=== PATIENT | male | born 1970 | race Caucasian/White ===

== ENCOUNTER 2017-05-17 18:27 | Emergency (ER) | payer OTHER ==
[2017-05-17] MEDS ORDERED: SODIUM CHLORIDE 0.9% 1,000 ML IV STA ×2 (18:59)
[2017-05-17 19:18] LABS: Basophils % (A) 0 %; CH 32.2; CHCM 34.2; Eosinophils # (A) 0.1 k/uL (0-0.7); Eosinophils % (A) 2 %; HCT 42.7 % (39.0-53.0); HDW 2.68; HGB 14.8 gm/dL (13.0-17.5); Luc # (Auto) 0.16; Luc % (Auto) 2; Lymphocytes % (A) 26 %; MCH 32.8 pg (25.0-35.0); MCHC 34.6 g/dL (31.0-37.0); MCV 94.8 fL (80.0-100.0); Mean Platelet Volume 7.6; Monocytes # (A) 0.5 k/uL (0-1.0); Monocytes % (A) 6 %; Neutrophils # (A) 4.8 k/uL (1.3-7.7); Neutrophils % (A) 64 %; RBC 4.51 m/uL (4.30-5.90); RDW 13.1 % (11.5-15.5); WBC 7.6 k/uL (3.8-10.6); WBC (Perox) 7.89
--- NOTE | 2017-05-17 19:22 | XR ---
EXAMINATION TYPE: XR chest 2V DATE OF EXAM: 05/17/2017 COMPARISON: None HISTORY: 47-year-old male with syncope TECHNIQUE: Frontal and lateral views FINDINGS: The heart is mildly enlarged. Mild interstitial prominence. No consolidation or pleural effusion. IMPRESSION: Cardiomegaly and mild interstitial prominence. Correlate to exclude mild CHF.
[2017-05-17 19:24] LABS: INR 2.4 (<1.2); Prothrombin Time 22.7 sec (9.0-12.0)
[2017-05-17 19:25] LABS: ALT 59 U/L (21-72); AST 79 U/L (17-59); Alcohol 12 mg/dL; Alkaline Phosphatase 64 U/L (38-126); Anion Gap 9 mmol/L; Blood Urea Nitrogen 20 mg/dL (9-20); Carbon Dioxide 22 mmol/L (22-30); Chloride 108 mmol/L (98-107); Glucose 120 mg/dL (74-99); Magnesium 1.5 mg/dL (1.6-2.3); Non-African American GFR(MDRD) >60 (>60 ml/min/1.73 sqM); Sodium 139 mmol/L (137-145); Total Bilirubin 0.6 mg/dL (0.2-1.3); Total Protein 5.7 g/dL (6.3-8.2)
[2017-05-17 19:28] LABS: Potassium 4.5 mmol/L (3.5-5.1)
[2017-05-17 19:33] LABS: Creatine Kinase 732 U/L (55-170)
[2017-05-17 19:46] LABS: Troponin I <0.012 ng/mL (0.000-0.034)
[2017-05-17 19:49] LABS: Creatine Kinase MB 5.4 ng/mL (0.0-2.4)
[2017-05-17 20:46] VITALS: PULSE 69
[2017-05-17] MEDS ORDERED: ASPIRIN 325 MG TAB PO STA (20:50)
--- NOTE | 2017-05-17 20:50 | ED ---
General Adult HPI - General Chief complaint: Syncope Stated complaint: near syncope Time Seen by Provider: 05/17/17 18:32 Source: patient, family, EMS, RN notes reviewed Mode of arrival: EMS Limitations: no limitations - History of Present Illness Initial comments: 47-year-old male presents with lightheadedness and difficulty breathing. Patient's has history of A. fib, hypertension, and congestive heart failure. [place], he did admit to having 3 beers and smoking some cigarettes which he normally does not do. Denies nausea vomiting or diarrhea. Patient became lightheaded and almost passed out. Was brought by family members for evaluation in the emergency department. Patient did report eating lunch, overall he did not eat much today. Patient denies chest pain at this time. States he had some mild chest pain with the episode. - Related Data Home Medications Medication Instructions Recorded Confirmed Atorvastatin Calcium [Lipitor] 10 mg PO DAILY 05/17/17 05/17/17 Furosemide [Lasix] 20 mg PO DAILY 05/17/17 05/17/17 Lisinopril 40 mg PO DAILY 05/17/17 05/17/17 Potassium Chloride [K-Tab ER] 20 meq PO DAILY 05/17/17 05/17/17 Verapamil HCl [Verapamil ER] 240 mg PO DAILY 05/17/17 05/17/17 Warfarin [Coumadin] 2.5 mg PO MOTUWETH 05/17/17 05/17/17 Warfarin [Coumadin] 5 mg PO SUFRSA 05/17/17 05/17/17 amLODIPine [Norvasc] 5 mg PO DAILY 05/17/17 05/17/17 Allergies Allergy/AdvReac Type Severity Reaction Status Date / Time No Known Allergies Allergy Verified 05/17/17 18:42 Review of Systems ROS Statement: Those systems with pertinent positive or pertinent negative responses have been documented in the HPI. ROS Other: All systems not noted in ROS Statement are negative. Past Medical History Past Medical History: Atrial Fibrillation, Hyperlipidemia, Hypertension History of Any Multi-Drug Resistant Organisms: None Reported Past Surgical History: Appendectomy Past Psychological History: No Psychological Hx Reported Smoking Status: Light tobacco smoker Past Alcohol Use History: Occasional Past Drug Use History: None Reported General Exam Limitations: no limitations General appearance: alert, in no apparent distress Head exam: Present: atraumatic, normocephalic Eye exam: Present: normal appearance, PERRL ENT exam: Present: normal exam Neck exam: Present: normal inspection, full ROM. Absent: tenderness Respiratory exam: Present: rales. Absent: respiratory distress Cardiovascular Exam: Present: regular rate, normal rhythm GI/Abdominal exam: Present: soft, distended. Absent: tenderness Extremities exam: Present: pedal edema Neurological exam: Present: alert, oriented X3. Absent: motor sensory deficit Psychiatric exam: Present: normal affect, normal mood Skin exam: Present: warm, dry. Absent: cyanosis, diaphoretic Course Vital Signs 05/17/17 18:31 Temperature 97.2 F L Pulse Rate 70 Respiratory 16 Rate Blood Pressure 88/52 O2 Sat by Pulse 93 L Oximetry EKG Findings - EKG Comments: EKG Findings:: EKG shows normal sinus rhythm with a ventricular rate of 72, WA interval appears normal although not quantified. QRS duration 88, QTC 473, no signs of ST segment elevation Medical Decision Making - Medical Decision Making 47-year-old male with history of syncopal episode. Patient does report some chest pain which is resolving shortness of breath. Scalp fine rales on auscultation, and chest x-ray shows pulmonary edema with cardio megaly. There is no medical records in our system here. Patient speaks only some Banglades[place], his family helps translate complete history. 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 EKG nonischemic, chest x-ray shows cardiomegaly with pulmonary edema. Laboratory studies reveal a stable hemoglobin, therapeutic INR, mild hypo ca+. Troponin is negative. Patient's vital signs improved with 1 L of IV hydration. He is given an aspirin in the emergency department. He will be transferred to [facility].. Diagnosis: Syncope, chest pain-Resolved, congestive heart failure. - Lab Data Result diagrams: 05/17/17 18:30 05/17/17 18:30 Lab Results 05/17/17 05/17/17 05/17/17 Range/Units 18:30 18:30 18:30 WBC 7.6 (3.8-10.6) k/uL RBC 4.51 (4.30-5.90) m/uL Hgb 14.8 (13.0-17.5) gm/dL Hct 42.7 (39.0-53.0) % MCV 94.8 (80.0-100.0) fL MCH 32.8 (25.0-35.0) pg MCHC 34.6 (31.0-37.0) g/dL RDW 13.1 (11.5-15.5) % Plt Count 158 (150-450) k/uL Neutrophils % 64 % Lymphocytes % 26 % Monocytes % 6 % Eosinophils % 2 % Basophils % 0 % Neutrophils # 4.8 (1.3-7.7) k/uL Lymphocytes # 2.0 (1.0-4.8) k/uL Monocytes # 0.5 (0-1.0) k/uL Eosinophils # 0.1 (0-0.7) k/uL Basophils # 0.0 (0-0.2) k/uL PT (9.0-12.0) sec INR (<1.2) APTT (22.0-30.0) sec Sodium 139 (137-145) mmol/L Potassium 4.5 (3.5-5.1) mmol/L Chloride 108 H (98-107) mmol/L Carbon Dioxide 22 (22-30) mmol/L Anion Gap 9 mmol/L BUN 20 (9-20) mg/dL Creatinine 1.07 (0.66-1.25) mg/dL Est GFR (MDRD) Af Amer >60 (>60 ml/min/1.73 sqM) Est GFR (MDRD) Non-Af >60 (>60 ml/min/1.73 sqM) Glucose 120 H (74-99) mg/dL Calcium 8.0 L (8.4-10.2) mg/dL Magnesium 1.5 L (1.6-2.3) mg/dL Total Bilirubin 0.6 (0.2-1.3) mg/dL AST 79 H (17-59) U/L ALT 59 (21-72) U/L Alkaline Phosphatase 64 (38-126) U/L Total Creatine Kinase 732 H (55-170) U/L CK-MB (CK-2) 5.4 H* (0.0-2.4) ng/mL CK-MB (CK-2) Rel Index 0.7 Troponin I <0.012 (0.000-0.034) ng/mL Total Protein 5.7 L (6.3-8.2) g/dL Albumin 3.5 (3.5-5.0) g/dL Serum Alcohol 12 mg/dL 05/17/17 Range/Units 18:30 WBC (3.8-10.6) k/uL RBC (4.30-5.90) m/uL Hgb (13.0-17.5) gm/dL Hct (39.0-53.0) % MCV (80.0-100.0) fL MCH (25.0-35.0) pg MCHC (31.0-37.0) g/dL RDW (11.5-15.5) % Plt Count (150-450) k/uL Neutrophils % % Lymphocytes % % Monocytes % % Eosinophils % % Basophils % % Neutrophils # (1.3-7.7) k/uL Lymphocytes # (1.0-4.8) k/uL Monocytes # (0-1.0) k/uL Eosinophils # (0-0.7) k/uL Basophils # (0-0.2) k/uL PT 22.7 H (9.0-12.0) sec INR 2.4 H (<1.2) APTT 23.0 (22.0-30.0) sec Sodium (137-145) mmol/L Potassium (3.5-5.1) mmol/L Chloride (98-107) mmol/L Carbon Dioxide (22-30) mmol/L Anion Gap mmol/L BUN (9-20) mg/dL Creatinine (0.66-1.25) mg/dL Est GFR (MDRD) Af Amer (>60 ml/min/1.73 sqM) Est GFR (MDRD) Non-Af (>60 ml/min/1.73 sqM) Glucose (74-99) mg/dL Calcium (8.4-10.2) mg/dL Magnesium (1.6-2.3) mg/dL Total Bilirubin (0.2-1.3) mg/dL AST (17-59) U/L ALT (21-72) U/L Alkaline Phosphatase (38-126) U/L Total Creatine Kinase (55-170) U/L CK-MB (CK-2) (0.0-2.4) ng/mL CK-MB (CK-2) Rel Index Troponin I (0.000-0.034) ng/mL Total Protein (6.3-8.2) g/dL Albumin (3.5-5.0) g/dL Serum Alcohol mg/dL Disposition Clinical Impression: Syncope, Congestive heart failure Disposition: OTHER INSTITUTION NOT DEFINED Referrals: None,Stated [Primary Care Provider] - 1-2 days - Out of Hospital Transfer - Req. Specs Out of Hospital Transfer - Requested Specifics: Other Non-Acute (Transfer to [facility], Dr. Dunn)
[2017-05-17 21:09] VITALS: BP 105/69; RESP 18; TEMP 97.6
== END 2017-05-17 21:35 | disposition other institution (70) ==
LOC: EC 18:27
DX: R55 Syncope and collapse (principal); I11.0 Hypertensive heart disease with heart failure; I50.9 Heart failure, unspecified; R06.00 Dyspnea, unspecified; R42 Dizziness and giddiness; I48.91 Unspecified atrial fibrillation; E78.5 Hyperlipidemia, unspecified; F17.200 Nicotine dependence, unspecified, uncomplicated; Z79.01 Long term (current) use of anticoagulants; Z79.899 Other long term (current) drug therapy
CPT/HCPCS: 36415; 71020; 80053; 80320; 82550; 82553; 83735; 83880; 84484; 85025; 85610; 85730; 93005; 96360; 99285